=== PATIENT | female | born 1965 | race Caucasian/White ===

== ENCOUNTER 2016-09-19 09:45 | Day surgery (SDC) | payer OTHER ==
[2016-09-13 12:38] VITALS: BMI 31.8
[2016-09-19] MEDS ORDERED: BUPIVACAINE HCL/PF 2.5 MG/ML - 30 ML VIAL IJ ONE (10:34)
[2016-09-19] MEDS ORDERED: LIDOCAINE HCL 1%, 10 MG/ML (20ML VIAL) ONE (10:34)
[2016-09-19] MEDS ORDERED: MIDAZOLAM HCL 2 MG/2 ML SINGLE DOSE VIAL ONE ×2 (10:43→10:55)
[2016-09-19] MEDS ORDERED: PROPOFOL 20 ML ONE (10:55)
[2016-09-19] MEDS ORDERED: LIDOCAINE HCL 2% (20ML MULTI-DOSE VIAL) NR ONE (10:56)
[2016-09-19] MEDS ORDERED: LIDOCAINE HCL 2% (50ML VIAL) NR ONE (11:01)
[2016-09-19 11:54] VITALS: TEMP 97.9
[2016-09-19 12:12] VITALS: BP 105/65; PULSE 66
[2016-09-19] MEDS ORDERED: oxyCODONE HCL 5 MG TABLET PO PRN (13:46)
[2016-09-19] MEDS ORDERED: ONDANSETRON 4 MG/2 ML VIAL IVPUSH PRN (13:46)
[2016-09-19] MEDS ORDERED: ACETAMINOPHEN 325 MG TABLET (FP) PO PRN (13:46)
[2016-09-19] MEDS ORDERED: LACTATED RINGERS SOLUTION 1,000 ML IV SCH (14:00)
--- NOTE | 2016-09-21 11:26 | OP ---
DATE OF OPERATION: 09/19/2016 PREOPERATIVE DIAGNOSIS: 1. Left carpal tunnel syndrome. 2. Left small-finger subungual mass. POSTOPERATIVE DIAGNOSIS: 1. Left carpal tunnel syndrome. 2. Left small-finger subungual mass. OPERATIVE PROCEDURE: 1. Left carpal tunnel release. 2. Left small-finger mass incision. SURGEON: Braulio Maciel MD ANESTHESIA: Local with sedation. COMPLICATIONS: None. ESTIMATED BLOOD LOSS: Minimal. INDICATIONS FOR PROCEDURE: The patient is a 51-year-old female with the above findings, indicated for operative treatment. The risks, benefits, and alternatives were discussed with the patient at length, and proper informed consent was obtained. PROCEDURE: After proper identification of the patient and the correct operative site, the patient was brought to the operating room and placed supine on the operating table. All bony prominences were well padded. Sedation was given by the anesthesiologist; local anesthesia was given with 2% lidocaine. Left upper extremity was prepped and draped in the usual sterile fashion. A well-padded tourniquet was placed with a sterile prep. Esmarch bandage was used to exsanguinate the left upper extremity. A tourniquet was inflated to 250 mmHg. Longitudinal incision was made at the proximal aspect of the palm. Incision was taken sharply through the skin with blunt and sharp dissection through subcutaneous tissues. The palmar fascia was divided longitudinally. The transverse carpal ligament was divided longitudinally along with distal 4 cm of antebrachial fascia under direct visualization with loupe magnification. This provided complete release of the median nerve at the wrist. Wound was irrigated with saline and repaired with a 5-0 nylon suture. A second incision was made over the mid axial portion of the small finger, distal phalanx area. Incision was taken sharply through the skin with blunt and sharp dissection through subcutaneous tissues. The mass was found to be a glomus tumor appearing mass in the subungual region. This was excised in full and sent for pathological evaluation. Care was taken to protect the sterile germinal matrix. Wound was irrigated with saline and repaired with a 5-0 nylon suture. Sterile dressings were applied. Patient was reversed from anesthesia and brought to the recovery room in stable condition. She tolerated the procedure well. Nicole [id number]
--- NOTE | 2016-09-26 16:02 | PATH ---
Surgical Pathology Report Patient Name: NAYANA DIEZ [facility]. Rec. #: [id number] /Age/Gender: 1965 (Age: 51) / F Account: [id number] Location: [facility] AMBULATORY Taken: 09/19/2016 Received: 09/19/2016 Reported: 09/26/2016 Physicians: Braulio Maciel M.D. Specimen(s) Received LEFT SMALL FINGER MASS Clinical History Left carpal tunnel, left small finger mass Final Diagnosis SMALL FINGER, LEFT, MASS, EXCISION: GLOMANGIOMA. (SEE NOTE) Note: Immunohistochemical studies performed at [place], [place] ([id number]) demonstrate the lesional cells to be positive for SMA and CD34 while negative for AE 1/3, desmin and S100. These findings support the diagnosis. Electronically Signed Rochelle Hastings M.D. Gross Description Received in formalin labeled "left small finger mass," is a 0.5 x 0.4 x 0.3 cm crockett, irregular portion of soft tissue. The specimen is submitted in toto in one cassette. 09/20/2016 [facility]09/20/2016
== END 2016-09-19 12:15 | disposition home or self-care (01) ==
LOC: FASU 09:45
PROVIDERS: ATTEND Orthopaedic Surgery Hand Surgery
PROC: 0JBK0ZZ Excision of Left Hand Subcutaneous Tissue and Fascia, Open Approach (ICD-10-PCS; 2016-09-19)
PROC: 01N50ZZ Release Median Nerve, Open Approach (ICD-10-PCS; principal; 2016-09-19 11:04)
DX: G56.02 Carpal tunnel syndrome, left upper limb (principal); D18.01 Hemangioma of skin and subcutaneous tissue
CPT/HCPCS: 84703; 88305-TC

== ENCOUNTER 2016-11-14 14:10 | Day surgery (SDC) | payer OTHER ==
[2016-11-08 11:09] VITALS: BMI 31.6
[2016-11-14] MEDS ORDERED: MIDAZOLAM HCL 2 MG/2 ML SINGLE DOSE VIAL ONE ×2 (15:12→15:49)
[2016-11-14] MEDS ORDERED: PROPOFOL 20 ML ONE (15:52)
[2016-11-14] MEDS ORDERED: LIDOCAINE HCL 2% (50ML VIAL) INF ONE (16:09)
[2016-11-14] MEDS ORDERED: ONDANSETRON 4 MG/2 ML VIAL IVPUSH PRN (16:10)
[2016-11-14] MEDS ORDERED: oxyCODONE HCL 5 MG TABLET PO PRN (16:10)
[2016-11-14 17:54] VITALS: BP 118/58; PULSE 59; TEMP 97.9
--- NOTE | 2016-11-15 10:23 | OP ---
DATE OF OPERATION: 11/14/2016 PREOPERATIVE DIAGNOSIS: Right carpal tunnel syndrome. POSTOPERATIVE DIAGNOSIS: Right carpal tunnel syndrome. OPERATIVE PROCEDURE: Right carpal tunnel release. ANESTHESIA: Local with sedation. COMPLICATIONS: None. ESTIMATED BLOOD LOSS: Minimal. INDICATION FOR PROCEDURE: The patient is a 51-year-old female with the above finding, indicated for operative treatment. Risks, benefits, and alternatives were discussed with the patient at length. Proper informed consent was obtained. DESCRIPTION OF PROCEDURE: After proper identification of the patient and the correct operative site, the patient was brought to the operating room and placed supine on the operative table. All prominences were well padded. Sedation was given by the anesthesiologist. Local anesthesia was given with 2% lidocaine. The right upper extremity was prepped and draped in the usual sterile fashion. A well-padded tourniquet was placed with a sterile prep. An Esmarch bandage was used to exsanguinate the right upper extremity. The tourniquet was inflated to 250 mmHg. A longitudinal incision was made over the proximal aspect of the palm. Incision was taken sharply through the skin with blunt and sharp dissection through the subcutaneous tissues. Palmar fascia was divided longitudinally. Transcarpal ligament was divided longitudinally along with the distal 4 cm of the antebrachial fascia under direct visualization with loupe magnification. This provided complete release of the median nerve at the wrist. Wound was irrigated with saline, repaired with a 5-0 nylon suture. Sterile dressings were applied. Patient was brought to the recovery room in stable condition. She tolerated the procedure well. Nicole [id number]
== END 2016-11-14 17:54 | disposition home or self-care (01) ==
LOC: FASU 14:10
PROVIDERS: ATTEND Orthopaedic Surgery Hand Surgery
PROC: 01N50ZZ Release Median Nerve, Open Approach (ICD-10-PCS; principal; 2016-11-14 15:50)
DX: G56.01 Carpal tunnel syndrome, right upper limb (principal)
CPT/HCPCS: 84703